=== PATIENT | male | born 1990 | race Two or more races ===

== ENCOUNTER 2025-01-22 01:59 | Emergency (ER) | payer MEDICAID, SELFPAY ==
[2025-01-22 02:00] VITALS: BMI 34.9
[2025-01-22 02:41] VITALS: BP 151/90; PULSE 76; RESP 18; TEMP 36.9; O2SAT 97
--- NOTE | 2025-01-22 02:50 | XR_ITS ---
Examination: CT brain head without contrast. 2-D sagittal coronal reconstructions Date and time of exam:January 22, 2025 0325 hrs. Indications: Headaches dizziness today CTDI: vol (mGy):56.7 DLP: (mGycm):1157 Technique: Multiple CT axial sections of the brain have been obtained, 5 mm slice thickness. Contrast has not been administered. 2-D sagittal, coronal reconstructions have been obtained Low dose protocols were performed. One or more of the following dose reduction techniques were used; automated exposure control, adjustment of the mA and/or KV according to patient size, use of iterative reconstruction technique. Findings: No significant ventricular enlargement. Intra-axial or extra-axial hemorrhage density is not seen. No mass effect or midline shift Basal cisterns are not remarkable. Fourth ventricle is midline. Cranial vault intact. Impression: Negative for acute hemorrhage, mass effect or midline shift Advise clinical correlation and follow-up accordingly
--- NOTE | 2025-01-22 02:50 | EKG_ITS ---
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
--- NOTE | 2025-01-22 02:51 | PD.EDRME ---
Rapid Medical Screening Exam RME Arrival date/time: 01/22/25 01:59 34 yo male present to emergency room with c/o of dizziness, headached today I have greeted and performed a focused initial assessment of this patient. A comprehensive ED assessment and evaluation of the patient, analysis of all test results, and completion of the medical decision making process will be conducted by additional ED providers. Chief Complaint: General Adult/Misc Complain Vital signs: Vital Signs Temperature 98.4 F 01/22/25 02:41 Pulse Rate 76 01/22/25 02:41 Respiratory Rate 18 01/22/25 02:41 Blood Pressure 151/90 H 01/22/25 02:41 Pulse Oximetry (%) 97 01/22/25 02:41 Oxygen Delivery Method Room Air 01/22/25 02:41
[2025-01-22 03:57] LABS: Basophils % (Auto) 0 % (0-2.5); Eosinophils # (Auto) 0.1 Thou/mm3 (0.0-0.5); Eosinophils % (Auto) 2 % (0-10); Hematocrit 41.1 % (41.0-53.0); Hemoglobin 14.1 g/dL (13.5-16.0); Immature Granulocytes % (Auto) 0 % (0-0); Immature Granulocytes Auto 0.03 Thou/mm3 (0.00-0.00); Lymphocytes # (Auto) 3.4 Thou/mm3 (1.0-4.8); Lymphocytes % (Auto) 36 % (10-50); Mean Corpuscular HGB Conc 34.3 g/dl (31.0-37.0); Mean Corpuscular Hemoglobin 28.5 pg (25.0-35.0); Mean Corpuscular Volume 83 fL (80-100); Monocytes # (Auto) 0.7 Thou/mm3 (0.0-0.8); Monocytes % (Auto) 7 % (0-12); Neutrophils # (Auto) 5.1 Thou/mm3 (1.8-7.7); Neutrophils % (Auto) 55 % (37-80); Nucleated Red Blood Cell % 0 /100 WBC (0); Platelet Count 262 Thou/mm3 (140-440); RDW Standard Deviation 38.2 fL (35.1-43.9); Red Blood Count 4.94 Miln/mm3 (4.50-5.90); White Blood Count 9.3 Thou/mm3 (3.8-10.6)
[2025-01-22] MEDS: MECLIZINE HCL 25 MG TABLET PO (04:06)
--- NOTE | 2025-01-22 04:16 | PRELIM_ITS ---
CT scan of the head without intravenous contrast (axial sections with sagittal and coronal reformats). January 22, 2025 0325 hours Clinical History: Dizziness, headache Comparison: None. Findings: No evidence of intracranial hemorrhage, mass effect or midline shift. The ventricles and CSF spaces are unremarkable. The calvarium is unremarkable. The mastoid air cells are clear. Mucous inclusion cysts are noted in bilateral maxillary sinuses. Impression: No evidence of intracranial hemorrhage, mass effect or midline shift. Report Electronically Signed By: Jim Mckeon 01/22/2025 4:15:49 AM [EST]
[2025-01-22 04:23] LABS: Alanine Aminotransferase 14 U/L (10-49); Albumin, Serum 4.5 gm/dL (3.5-5.0); Albumin/Globulin Ratio 1.8 (1.2-2.2); Alkaline Phosphatase 75 U/L (46-116); Anion Gap 10 (7-16); Aspartate Amino Transferase 10 U/L (0-34); BUN/Creatinine Ratio 16 Ratio (12-20); Bilirubin,Total 0.3 mg/dL (0.3-1.2); Blood Urea Nitrogen 14 mg/dL (9-23); Calcium 9.7 mg/dL (8.3-10.6); Calcium (Corrected) 9.7 mg/dL (8.5-10.1); Chloride 106 mMol/L (98-107); Creatinine (Component) 0.9 mg/dL (0.6-1.3); Estimated Creatinine Clearance 135.4 mL/min (>60); Globulin 2.5 gm/dL (2.3-3.5); Glucose 95 mg/dL (74-106); Osmolality,Calculated 281 (275-295); Potassium 3.8 mMol/L (3.4-5.1); Sodium 141 mMol/L (136-145); Troponin I < 0.002 ng/mL (0.0-0.045); eGFR > 60 See Note
--- NOTE | 2025-01-22 04:31 | EDNOTE_ITS ---
ED General RME/HPI General Chief complaint: General Adult/Misc Complain Stated complaint: LIGHTHEADED, DIZZY Time Seen by Provider: 01/22/25 02:58 Arrival date/time: 01/22/25 01:59 34 year old male present to emergency room with c/o of intermittent dizziness since last . Pt also report headache. SEVERITY: Symptoms are described as being severe with limitations on activities of daily living CONTEXT: The patient is unable to identify any inciting events. DURATION/TIMING: The symptoms started approximately 5 ASSOCIATED SYMPTOMS: The patient is unable to identify any other associated symptoms. MODIFYING FACTORS: The patient is unable to identify any alleviating or aggravating symptoms. PERTINENT ROS: no fevers, no cough, no pleuritic pain, no ripping or tearing sensations, denies any lower extremity edema and no unilateral swelling, no chest pain/shortness of breath no nausea,vomiting, diarrhea, no rash no loc/syncope episode no abd/back pain no dsyuria,urgency,frequency REVIEW OF SYSTEMS: See History of Present Illness - with the exception of those mentioned in the history of present illness, all other systems reviewed and reported as negative GENERAL: In general the patient is awake, interactive, in an emergency department gurney. HEAD/EYES/EARS/NOSE/THROAT: normo-cephalic, atraumatic, mucus membranes are moist, anicteric, palpebral conjunctiva is pink, trachea is midline. CARDIOVASCULAR: regular rate and regular rhythm, no murmurs, heart sounds are not distant, strong pulses in all four extremities that are equal and symmetric bilateral upper and lower extremities, normal capillary refill. CHEST/PULMONARY: normal chest rise and fall, good air movement, clear to auscultation bilaterally, normal inspiratory to expiratory ratios without evidence of respiratory distress. NECK: No midline/Paraspinal tenderness, no step off ROM/Strenght intact No Kernig and bruzinski sign. No trauma ABDOMEN: soft, not tender, no masses appreciated BACK: normal range of motion without pain. NEUROLOGICAL: cranio-facial features are symmetric, moves all four extremities equally without obvious limitations or weakness. EXTREMITY: no tenderness to palpation over the long bones or large joints of the bilateral upper and lower extremities, no joint swelling, no joint erythema, no signs of trauma, no unilateral leg swelling and no peripheral edema. SKIN: warm, dry, well-perfused, no jaundice, no rash, no telangiectasias or petechia. PSYCH: calm, cooperative, no evidence of psychosis or agitation RME / HPI RME / HPI narrative: 01/22/25 01:59 34 yo male present to emergency room with c/o of dizziness, headached today I have greeted and performed a focused initial assessment of this patient. A comprehensive ED assessment and evaluation of the patient, analysis of all test results, and completion of the medical decision making process will be conducted by additional ED providers. Related Data Home Medications ?Medication ?Instructions ?Recorded ?Confirmed ergocalciferol (vitamin D2) 1,250 1 cap PO QWEEK 05/2505/25/22 mcg (50,000 unit) capsule loratadine 10 mg tablet 1 tab PO QDAY 05/25/2205/25 Previous Rx's ?Medication ?Instructions ?Recorded cyclobenzaprine 10 mg tablet 10 mg PO TID #14 tabs meloxicam 7.5 mg tablet 7.5 mg PO QDAY #10 tabs 04/14 03/06 meclizine 25 mg tablet 25 mg PO TID PRN dizziness # 30 tabs 01/22/25 Allergies Allergy/AdvReac Type Severity Reaction Status Date / Time No Known Allergies Allergy Verified 09/15/24 20:16 Course Course Course Narrative: Based on History, Exam, and Findings, presentation not consistent with syncope, seizure, stroke, meningitis, symptomatic anemia (gastrointestinal bleed), Increased ICP (cerebral tumor/mass), ICH. Additionally, I have a low suspicion for AOM, labyrinthitis, or other infectious process. CT head negative, basic labs, ekg,trop wnl Reassessment: Prior to discharge symptoms controlled, patient well appearing. Disposition:? Discharge. Strict return precautions discussed w/ full understanding. Advise follow up with primary care provider within 24-48 hours.? Quality Measures none Orders Category Date Time Status Bedside Influenza A&B Antigen Test NOW Care 01/22/25 02:50 Completed EKG (ED ONLY) *Do not use* NOW Care 01/22/25 02:[address] head/brain wo con Stat Exams 01/22/25 02:50 Taken EKG (ED Only) Stat Exams 01/22/25 02:50 Draft CBC Stat Lab 01/22/25 03:36 Completed CMP [Comprehensive Metabolic Panel] Stat Lab 01/22/25 03:36 Completed Troponin I Stat Lab 01/22/25 03:36 Completed Meclizine HCl [Antivert] Med 01/22/25 02:50 Discontinued 25 mg PO X1 ONE Vital Signs Vital signs: Vital Signs Temperature 98.4 F 01/22/25 02:41 Pulse Rate 76 01/22/25 02:41 Respiratory Rate 18 01/22/25 02:41 Blood Pressure 151/90 H 01/22/25 02:41 Pulse Oximetry (%) 97 01/22/25 02:41 Oxygen Delivery Method Room Air 01/22/25 02:41 Procedures -ED EKG Interpretation #1: Date of EK01/22/25 Rate: 70 Interpretation: Reviewed by me EKG Impression: Normal sinus rhythm, No acute ST-T changes, No ectopy, No ischemic changes, Normal QRS and Normal intervals MDM Patient data External records reviewed:: None Clinical information provided by:: patient Social determinants that could affect healthcare access:: none Patient has the following chronic illnesses:: n/a How is presenting disease/condition affected by chronic disease/condition?: no chronic disease Evaluation data The following diagnostics were reviewed and interpreted by me:: lab results, radiology exam(s) and EKG tracing(s) Lab and/or radiology exams considered but not ordered:: n/a Interpretation Summary: cbc/cmp/trop wnl ct; no acute findings influena negative Medications Medications considered but not ordered:: n/a Medication administrations:: Medication Administration History Discontinued Medications Meclizine HCl (Meclizine Hcl 25 Mg Tablet) 25 mg PO X1 ONE Stop: 01/22/25 02:51 Last Admin: 01/22/25 04:06 Dose: 25 mg Documented By: AC as state above Consultations Consultation(s) initiated? (list below): No Diagnosis Differential Diagnosis ED Complaint MDM: as stated in course Most likely diagnosis given after review of the tests above:: vertigo Admission Indicated Admission indicated?: not indicated Explain why admission is indicated or not indicated:: as stated above Admission Request Was there a request for admission?: No Disposition Plan Disposition Plan: Discharge Discharge Attestation Discharge Attestation: The patient and all family members were given an opportunity to ask questions and understood the discharge instructions. Discharge instructions specifically effects, indications for sooner follow up or return to the emergency department, and the expected course of current diagnosis. Patient condition: Stable Medical Decision Making Differential Diagnosis Differential Diagnosis: as stated in course Lab Data 01/22/25 03:36 01/22/25 03:36 Labs: Lab Results 01/22/25 Range/Units 03:36 WBC 9.3 (3.8-10.6) Thou/mm3 RBC 4.94 (4.50-5.90) Miln/mm3 Hgb 14.1 (13.5-16.0) g/dL Hct 41.1 (41.0-53.0) % MCV 83 (80-100) fL MCH 28.5 (25.0-35.0) pg MCHC 34.3 (31.0-37.0) g/dl RDW Std Deviation 38.2 (35.1-43.9) fL Plt Count 262 (140-440) Thou/mm3 Neut % (Auto) 55 (37-80) % Lymph % (Auto) 36 (10-50) % [place] % (Auto) 7 (0-12) % Eos % (Auto) 2 (0-10) % Baso % (Auto) 0 (0-2.5) % Neut # (Auto) 5.1 (1.8-7.7) Thou/mm3 Lymph # (Auto) 3.4 (1.0-4.8) Thou/mm3 [place] # (Auto) 0.7 (0.0-0.8) Thou/mm3 Eos # (Auto) 0.1 (0.0-0.5) Thou/mm3 Baso # (Auto) 0.0 (0.0-0.2) Thou/mm3 Immature Gran # (Auto) 0.03 H (0.00-0.00) Thou/mm3 Absolute Nucleated RBC 0.00 (0.00-0.00) Thou/mm3 Immature Gran % 0 (0-0) % Nucleated RBC % 0 (0) /100 WBC Sodium 141 (136-145) mMol/L Potassium 3.8 (3.4-5.1) mMol/L Chloride 106 (98-107) mMol/L Carbon Dioxide 25.0 (20.0-31.0) mMol/L Anion Gap 10 (7-16) BUN 14 (9-23) mg/dL Creatinine 0.9 (0.6-1.3) mg/dL Estim Creat Clear Calc 135.4 (>60) mL/min eGFR > 60 (60 - ) See Note BUN/Creatinine Ratio 16 (12-20) Ratio Glucose 95 (74-106) mg/dL Calculated Osmolality 281 (275-295) Calcium 9.7 (8.3-10.6) mg/dL Corrected Calcium 9.7 (8.5-10.1) mg/dL Total Bilirubin 0.3 (0.3-1.2) mg/dL AST 10 (0-34) U/L ALT 14 (10-49) U/L Alkaline Phosphatase 75 (46-116) U/L Troponin I < 0.002 (0.0-0.045) ng/mL Total Protein 7.0 (5.7-8.2) gm/dL Albumin 4.5 (3.5-5.0) gm/dL Globulin 2.5 (2.3-3.5) gm/dL Albumin/Globulin Ratio 1.8 (1.2-2.2) Discharge Plan Plan Patient Disposition: HOME (Self Care) Prescriptions/Referrals Prescriptions/Med Rec: New meclizine 25 mg tablet 25 mg PO TID PRN (Reason: dizziness) Qty: 30 0RF No Action ergocalciferol (vitamin D2) 1,250 mcg (50,000 unit) capsule 1 cap PO QWEEK Patient Comments: TAKE 1 CAPSULE BY MOUTH ONCE A WEEK loratadine 10 mg tablet 1 tab PO QDAY Patient Comments: TAKE 1 TABLET BY MOUTH EVERY DAY NEEDED FOR ALLERGIES meloxicam 7.5 mg tablet 7.5 mg PO QDAY Qty: 10 0RF cyclobenzaprine 10 mg tablet 10 mg PO TID Qty: 14 0RF Problem List Clinical Impression: Vertigo Patient/Caregiver Discharge Instructions Education Materials: Vertigo Medicine Tx Print Language: Turkmen Stand Alone Forms: [employer] Award Info., Patient Portal Info Letter
== END 2025-01-22 05:05 | disposition home or self-care (01) ==
LOC: SERX 06:07
PROVIDERS: Physician Assistant; Emergency Provider Emergency Medicine; PCP Nurse Practitioner Family
DX: R42 Dizziness and giddiness (principal); R51.9 Headache, unspecified
CPT/HCPCS: 36415; 70450; 80053; 84484; 85025; 87400; 93005; 99284; A9270

== ENCOUNTER 2025-03-09 16:18 | Emergency (ER) | payer MEDICAID, SELFPAY ==
[2025-03-09 16:51] VITALS: BP 139/90; PULSE 80; RESP 18; TEMP 36.8; O2SAT 100; BMI 34.9
--- NOTE | 2025-03-09 17:02 | EDNOTE_ITS ---
<Statement entered by Maura Sutton MD - 03/09/25 17:43> As co-signing physician, I was present and available for consult prn. I concur with the plan and care as documented by the midlevel provider. Lower Extremity Injury RME/HPI General Chief Complaint: Extremity Injury, Lower Stated Complaint: RIGHT KNEE INJURY Time Seen by Provider: 03/09/25 16:43 Arrival date/time: 03/09/25 16:18 RME / HPI RME / HPI Narrative: 34-year-old male patient came in for evaluation regarding right knee pain. Patient was lifting or carrying furniture, accidentally twisted the knee resulting in the pain pain is described as dull ache, severity moderate initially. Pain went away but today came back again. Incident happened last 4 to 5 days ago. Patient is ambulatory. Related Data Home Medications ?Medication ?Instructions ?Recorded ?Confirmed ergocalciferol (vitamin D2) 1,250 1 cap PO QWEEK 05/2505/25/22 mcg (50,000 unit) capsule loratadine 10 mg tablet 1 tab PO QDAY 05/25/2205/25 Previous Rx's ?Medication ?Instructions ?Recorded cyclobenzaprine 10 mg tablet 10 mg PO TID #14 tabs meloxicam 7.5 mg tablet 7.5 mg PO QDAY #10 tabs 04/14 03/06 meclizine 25 mg tablet 25 mg PO TID PRN dizziness # 30 tabs 01/22/25 Allergies Allergy/AdvReac Type Severity Reaction Status Date / Time No Known Allergies Allergy Verified 03/09/25 16:19 Review of Systems Review of Systems Narrative Review of Systems: Review of system reviewed and within normal limits except mentioned in HPI ED Exam Narrative Physical exam: VITAL SIGNS: Reviewed. GENERAL APPEARANCE: Alert and interactive, follows commands, no acute distress, HEAD AND FACE: Non-traumatic. ENT: PERRL, pink conjunctivitis, eyelid no trauma, Mucous membrane moist. NECK: Supple, nontender, no nuchal rigidity. MUSCULOSKELETAL: low back nontender, full range of motion. EXTREMITIES: Lateral knee tenderness, no swelling or deformity no laxity noted, full range of motion. SKIN: Color pink, dry, no rash, no lacerations, no abrasions, no contusions. LYMPHATICS: Deferred. Course Quality Measures none Vital Signs Vital signs: Vital Signs Temperature 98.2 F 03/09/25 16:51 Pulse Rate 80 03/09/25 16:51 Respiratory Rate 18 03/09/25 16:51 Blood Pressure 139/90 H 03/09/25 16:51 Pulse Oximetry (%) 100 03/09/25 16:51 Oxygen Delivery Method Room Air 03/09/25 16:51 Extremity Injury, Lower MDM Narrative MDM Narrative:: 34-year-old male patient came in for evaluation regarding right knee pain. Patient was lifting or carrying furniture, accidentally twisted the knee resulting in the pain pain is described as dull ache, severity moderate initially. Pain went away but today came back again. Incident happened last 4 to 5 days ago. Patient is ambulatory. Patient does not need emergency imaging at this time, patient is ambulatory. Patient was advised to follow-up. PCP, for possible outpatient MRI if needed. There is no indication to do emergency MRI at this time. Patient appears nontoxic and hemodynamically stable. Patient discharged home and instructed to follow-up with primary care provider in 24 to 48 hours. Instructed to return to the emergency department immediately if worsening of symptoms Patient data External records reviewed:: None Clinical information provided by:: patient Social determinants that could affect healthcare access:: none Patient has the following chronic illnesses:: None How is presenting disease/condition affected by chronic disease/condition?: no chronic disease Evaluation data The following diagnostics were reviewed and interpreted by me:: other (specify) Lab and/or radiology exams considered but not ordered:: None Interpretation Summary: None Medications / Prescriptions Medications or Prescriptions considered but not ordered:: None Medication administrations:: None Consultations Consultation(s) initiated? (list below): No Diagnosis Extremity Injury, Lower Differential Diagnosis: other (Knee pain knee sprain meniscal injury) Most likely diagnosis given after review of the tests above:: Knee sprain Admission Indicated Admission indicated?: not indicated Admission Request Was there a request for admission?: No Disposition Plan Disposition Plan: Discharge Discharge Attestation Discharge Attestation: The patient was given an opportunity to ask questions and understood the discharge instructions. Discharge instructions specifically effects, indications for sooner follow up or return to the emergency department, and the expected course of current diagnosis. Patient condition: Stable Discharge Plan Plan Patient Disposition: HOME (Self Care) Disposition Comment: STABLE Prescriptions/Referrals Prescriptions/Med Rec: No Action ergocalciferol (vitamin D2) 1,250 mcg (50,000 unit) capsule 1 cap PO QWEEK Patient Comments: TAKE 1 CAPSULE BY MOUTH ONCE A WEEK loratadine 10 mg tablet 1 tab PO QDAY Patient Comments: TAKE 1 TABLET BY MOUTH EVERY DAY NEEDED FOR ALLERGIES meloxicam 7.5 mg tablet 7.5 mg PO QDAY Qty: 10 0RF cyclobenzaprine 10 mg tablet 10 mg PO TID Qty: 14 0RF meclizine 25 mg tablet 25 mg PO TID PRN (Reason: dizziness) Qty: 30 0RF Problem List Clinical Impression: Knee sprain Patient/Caregiver Discharge Instructions Discharge Activity: activity as tolerated Education Materials: ED Knee Sprain Additional Instructions: Thank you for the opportunity for serving you today. You are stable for discharged . You are advised to: Follow-up with your PCP in 1 to 2 days Return to ED for worsening of symptoms Increase oral fluids As your PCP to refer you to a specialist regarding your knee pain Take viot-[id number] Tylenol or Motrin as needed for pain Print Language: Slovak Stand Alone Forms: [employer] Award Info., Patient Portal Info Letter PA/TRAFFIC CIRCUIT ENGINEER Supervising Physician PA/TRAFFIC CIRCUIT ENGINEER Supervising Physician: MD Lesley
== END 2025-03-09 17:07 | disposition home or self-care (01) ==
LOC: SERX 17:08
PROVIDERS: Emergency Provider Emergency Medicine
DX: S83.91XA Sprain of unspecified site of right knee, initial encounter (principal); X50.1XXA Overexertion from prolonged static or awkward postures, initial encounter
CPT/HCPCS: 99281

== ENCOUNTER → 2025-03-12 | Outpatient (CLI) | payer MEDICAID, SELFPAY ==
--- NOTE | 2025-03-12 12:56 | XR_ITS ---
Examination: Knee, right , 3 views Technique: Knee AP, lateral, oblique 3 views Date and time of exam: March 12, 2025 1312 hours INDICATIONS: Patient fell last week with injury to the knee, knee pain. FINDINGS: No fracture or dislocation Mild narrowing medial joint space IMPRESSION: No fracture or dislocation
== END | disposition home or self-care (01) ==
PROVIDERS: PCP Physician Assistant; Referring Provider Physician Assistant; Visit Provider Physician Assistant
DX: S89.81XA Other specified injuries of right lower leg, initial encounter (principal); W19.XXXA Unspecified fall, initial encounter
CPT/HCPCS: 73562

== ENCOUNTER 2025-05-01 00:51 | Emergency (ER) | payer MEDICAID, SELFPAY ==
[2025-05-01 00:51] VITALS: BP 122/80; PULSE 96; RESP 18; TEMP 37; O2SAT 97; BMI 36.0
--- NOTE | 2025-05-01 02:11 | PD.EDNV ---
Nausea/Vomit./Diarrhea-RME/HPI General Chief complaint: Nausea/Vomiting/Diarrhea Stated complaint: DIARRHEA,VOMITING Time Seen by Provider: 05/01/25 01:48 Arrival date/time: 05/01/25 00:51 RME / HPI RME / HPI Narrative: DR. WALTERS MAIN ED EVALUATION: 34 yo male presents to ED c/o vomiting and diarrhea x 2 days. Patient ate at approximately 4-5 PM and experienced worsening diarrhea. he also reports his cousin recently tested positive for TB. Denies fever, sore throat, dysuria, weight loss, night sweats, hemoptysis, and bloody stool. Also denies any other sick contacts, international travel, drug use, alcohol consumption, and smoking. No other concerns or complaints expressed at this time. Related Data Home Medications ?Medication ?Instructions ?Recorded ?Confirmed ergocalciferol (vitamin D2) 1,250 1 cap PO QWEEK 05/25/22 05/25/22 mcg (50,000 unit) capsule loratadine 10 mg tablet 1 tab PO QDAY 05/25/22 05/25/22 Previous Rx's ?Medication ?Instructions ?Recorded cyclobenzaprine 10 mg tablet 10 mg PO TID #14 tabs 04/27/23 meloxicam 7.5 mg tablet 7.5 mg PO QDAY #10 tabs 04/27/23 meclizine 25 mg tablet 25 mg PO TID PRN dizziness #30 tabs 01/22/25 ondansetron 4 mg disintegrating 4 mg PO Q12H PRN nausea and 05/01/25 tablet vomiting 2 days #4 tabs Allergies Allergy/AdvReac Type Severity Reaction Status Date / Time No Known Allergies Allergy Verified 03/09/25 16:19 Review of Systems Review of Systems Systems Reviewed: All systems reviewed, normal except as documented Past Medical History Past Medical History RESPIRATORY: Positive Asthma ED Exam Narrative Physical exam: GEN. APPEARANCE: The patient is alert awake oriented X-3 in no distress, lying down comfortably, does not look ill/toxic. Patient has good eye contact. Patient is cooperative. VITALS: All vitals were reviewed and the pulse ox is 95% on room air which is normal according to my interpretation. HEENT: Normocephalic, atraumatic. Pupils are equal and reactive. Oral mucosa is moist. Patent Nares NECK: Supple, nontender, no thyromegaly, no meningismus, no JVD CHEST: Symmetrical, atraumatic, and with equal expansion , Nontender on palpation no deformity and no crepitus. CARDIOVASCULAR: Heart regular rhythm no murmur or gallop rub or extra beats. LUNGS: Clear to auscultation bilaterally with symmetrical chest rise. No laboring tachypnea or wheezing. No intercostal subcostal retraction. No rales and no rhonchi. ABDOMEN: Soft, flat, nontender to palpation, no guarding or rebound tenderness. There are no abnormal masses palpated. Active and normal bowel sounds. EXTREMITIES: Nontender. No edema. No cyanosis. Patient is able to move all 4 extremities well, with full ROM and good CSM. SKIN: Warm and dry, no jaundice or rashes noted. NEURO: Patient is LANDA x 4, Cranial nerves II through XII grossly intact. There is no focal neurologic deficits noted. GCS is 15, PNS and PACKAGING TECH appear grossly intact. PSYCHIATRIC: Patient is in normal mood and affect. Course Quality Measures none Orders Category Date Time Status Bedside Influenza A&B Antigen Test NOW Care 05/01/25 02:23 Active CBC Stat Lab 05/01/25 02:40 Completed CMP [Comprehensive Metabolic Panel] Stat Lab 05/01/25 02:40 Completed Urinalysis, C/S if Indicated Stat Lab 05/01/25 02:26 Completed Acetaminophen Tab [Tylenol ES Tab] Med 05/01/25 02:23 Discontinued 500 mg PO X1 ONE Ondansetron Odt [Zofran Odt] Med 05/01/25 02:23 Discontinued 4 mg PO X1 ONE Ringers Lactated 1000 ml [Lactated Ringers] 1,000 ml Med 05/01/25 02:23 Discontinued IV 999 mls/hr Vital Signs Vital signs: Vital Signs Temperature 98.6 F 05/01/25 00:51 Pulse Rate 96 05/01/25 00:51 Respiratory Rate 18 05/01/25 00:51 Blood Pressure 122/80 05/01/25 00:51 Pulse Oximetry (%) 97 05/01/25 00:51 Oxygen Delivery Method Room Air 05/01/25 00:51 Nausea/Vomiting/Diarrhea MDM Narrative MDM Narrative:: Scribe Attestation: Vilma Lopez am scribing for and in the presence of Dr. Walters. Provider Notation: Although this document has been carefully reviewed, there may still be some phonetic and other typographical errors.? These errors are purely grammatical due to imperfections in the software program and should not be construed in any way to? compromise the substance of the patient's medical care during this visit. Offered patient testing multiple times to R/O TB infection, but patient declined. Patient is a 34-year-old male with send emerged from concerns for vomiting or diarrhea. Vital signs and exam as above concern for food intolerance, viral syndrome, dehydration. Patient abdomen soft nondistended tender, nonperitoneal do not suspect acute intra-abdominal pathology at this time. Patient without any chest pain, no shortness of breath less likely ACS arrhythmia. Patient mentioned that he had a sick contact with TV that he had limited contact with, I offered him testing for TB however he declined at this time ordered labs fluids and medication for symptom relief. Labs without any significant acute hematologic or metabolic abnormality urinalysis without evidence of infection. On reevaluation patient hemodynamically stable not in distress, symptoms resolved tolerating oral intake. Will discharge home close return precautions follow-up with primary care Patient data External records reviewed:: [facility] previous records (Reviewed prior ED records from 03/09/25. Patient was seen for Knee sprain.) Clinical information provided by:: patient Social determinants that could affect healthcare access:: none Patient has the following chronic illnesses:: Asthma How is presenting disease/condition affected by chronic disease/condition?: uneffected by Evaluation data The following diagnostics were reviewed and interpreted by me:: lab results Lab and/or radiology exams considered but not ordered:: None Interpretation Summary: Refer to [facility] Medications / Prescriptions Medications / Prescriptions considered but not ordered:: None Medication administrations:: Medication Administration History Discontinued Medications Acetaminophen (Acetaminophen 500 Mg Tablet) 500 mg PO X1 ONE Stop: 05/01/25 02:24 Last Admin: 05/01/25 02:46 Dose: 500 mg Documented By: CVL Lactated Ringer's (Lactated Ringers) 1,000 mls @ 999 mls/hr IV .Q1H1M ONE Stop: 05/01/25 03:23 Last Admin: 05/01/25 03:06 Dose: 999 mls/hr Documented By: CCT Ondansetron HCl (Ondansetron Odt 4 Mg Tabrap) 4 mg PO X1 ONE; Protocol Stop: 05/01/25 02:24 Last Admin: 05/01/25 02:42 Dose: 4 mg Documented By: CVL See above if any Consultations Consultation(s) initiated? (list below): No Diagnosis Nausea Differential Diagnosis: traveler's diarrhea, food poisoning, gastroenteritis, clostridium difficile infection, drug-induced nausea and vomiting, dehydration and other (Influenza, Viral Illness) Most likely diagnosis given after review of the tests above:: Vomiting, Diarrhea Admission Indicated Admission indicated?: not indicated Explain why admission is indicated or not indicated:: Patient does not meet admission criteria. Admission Request Was there a request for admission?: No Disposition Plan Disposition Plan: Discharge Discharge Attestation Discharge Attestation: The patient and all family members were given an opportunity to ask questions and understood the discharge instructions. Discharge instructions specifically effects, indications for sooner follow up or return to the emergency department, and the expected course of current diagnosis. Patient condition: Stable Discharge Plan Plan Patient Disposition: HOME (Self Care) Prescriptions/Referrals Prescriptions/Med Rec: New ondansetron 4 mg tablet,disintegrating 4 mg PO Q12H PRN (Reason: nausea and vomiting) 2 Days Qty: 4 0RF No Action ergocalciferol (vitamin D2) 1,250 mcg (50,000 unit) capsule 1 cap PO QWEEK Patient Comments: TAKE 1 CAPSULE BY MOUTH ONCE A WEEK loratadine 10 mg tablet 1 tab PO QDAY Patient Comments: TAKE 1 TABLET BY MOUTH EVERY DAY NEEDED FOR ALLERGIES meloxicam 7.5 mg tablet 7.5 mg PO QDAY Qty: 10 0RF cyclobenzaprine 10 mg tablet 10 mg PO TID Qty: 14 0RF meclizine 25 mg tablet 25 mg PO TID PRN (Reason: dizziness) Qty: 30 0RF Referrals: Parminder Chavez MD [Primary Care Provider] - In 1 week Problem List Clinical Impression: Vomiting, Diarrhea Patient/Caregiver Discharge Instructions Discharge Activity: activity as tolerated Education Materials: ED Diet for Vomiting or ..., ED Vomiting (Adult) Print Language: Pakistani Stand Alone Forms: Yadira Award Info., Patient Portal Info Letter
[2025-05-01] MEDS: ONDANSETRON ODT 4 MG TABRAP PO (02:42)
[2025-05-01] MEDS: ACETAMINOPHEN 500 MG TABLET PO (02:46)
[2025-05-01 03:00] LABS: Collection Type, Urine Clean Catch; Squamous Epithelial Cell,Urine 0 /hpf (0-5)
[2025-05-01 03:00] LABS: Basophils % (Auto) 0 % (0-2.5); Eosinophils # (Auto) 0.1 Thou/mm3 (0.0-0.5); Eosinophils % (Auto) 1 % (0-10); Hematocrit 44.3 % (41.0-53.0); Hemoglobin 15.3 g/dL (13.5-16.0); Immature Granulocytes % (Auto) 1 % (0-0); Immature Granulocytes Auto 0.05 Thou/mm3 (0.00-0.00); Lymphocytes # (Auto) 1.1 Thou/mm3 (1.0-4.8); Lymphocytes % (Auto) 11 % (10-50); Mean Corpuscular HGB Conc 34.5 g/dl (31.0-37.0); Mean Corpuscular Hemoglobin 28.1 pg (25.0-35.0); Mean Corpuscular Volume 81 fL (80-100); Monocytes # (Auto) 0.7 Thou/mm3 (0.0-0.8); Monocytes % (Auto) 6 % (0-12); Neutrophils # (Auto) 8.7 Thou/mm3 (1.8-7.7); Neutrophils % (Auto) 81 % (37-80); Nucleated Red Blood Cell % 0 /100 WBC (0); Platelet Count 217 Thou/mm3 (140-440); RDW Standard Deviation 37.1 fL (35.1-43.9); Red Blood Count 5.44 Miln/mm3 (4.50-5.90); White Blood Count 10.7 Thou/mm3 (3.8-10.6)
[2025-05-01 03:04] LABS: Bilirubin,Urine Negative (Negative); Blood,Urine Trace (Negative); Clarity,Urine Clear (Clear/Hazy); Color,Urine Lt-Yellow (Lt Yel-Yel); Culture Indicated,Urine Not Indicated; Glucose, Urine Negative (Negative); Ketones,Urine Negative (Negative); Leukocyte Esterase,Urine Negative (Negative); Nitrite,Urine Negative (Negative); PH,Urine 5.5 (5.0-7.0); Protein,Urine Negative (Neg - Trace); RBC,Urine 1 /hpf (0-3); Specific Gravity,Urine 1.022 (1.001-1.035); Urobilinogen,Urine Negative mg/dL (0.0-1.0); WBC,Urine < 1 /hpf (0-5)
[2025-05-01] MEDS: RINGERS LACTATED 1000 ML 1,000 ML 999 ML IV (03:06)
[2025-05-01 03:18] VITALS: BP 126/80; PULSE 78; RESP 18; TEMP 36.8; O2SAT 95
[2025-05-01 03:23] LABS: Alanine Aminotransferase 16 U/L (10-49); Albumin, Serum 4.7 gm/dL (3.5-5.0); Alkaline Phosphatase 66 U/L (46-116); Anion Gap 6 (7-16); Aspartate Amino Transferase 22 U/L (0-34); BUN/Creatinine Ratio 9 Ratio (12-20); Bilirubin,Total 0.7 mg/dL (0.3-1.2); Blood Urea Nitrogen 9 mg/dL (9-23); Calcium 8.8 mg/dL (8.3-10.6); Calcium (Corrected) 8.8 mg/dL (8.5-10.1); Carbon Dioxide 26.5 mMol/L (20.0-31.0); Chloride 105 mMol/L (98-107); Estimated Creatinine Clearance 119.8 mL/min (>60); Globulin 2.3 gm/dL (2.3-3.5); Glucose 104 mg/dL (74-106); Osmolality,Calculated 272 (275-295); Potassium 3.9 mMol/L (3.4-5.1); Sodium 137 mMol/L (136-145); eGFR > 60 See Note
[2025-05-01 04:55] VITALS: BP 121/83; PULSE 72; RESP 17; TEMP 36.6; O2SAT 96
== END 2025-05-01 04:55 | disposition home or self-care (01) ==
PROVIDERS: Emergency Provider Emergency Medicine; PCP Obstetrics & Gynecology
DX: R19.7 Diarrhea, unspecified (principal); R11.2 Nausea with vomiting, unspecified
CPT/HCPCS: 36415; 80053; 81001; 85025; 96360; 99284; J7120; Q0162; A9270